=== PATIENT | female | born 1950 | race Caucasian/White ===

== ENCOUNTER 2018-01-10 09:22 | Day surgery (SDC) ==
[2018-01-10] MEDS ORDERED: LIDOCAINE 1% 20 ML MDV ID STA (10:15)
[2018-01-10 15:59] VITALS: BP 139/80; TEMP 97
--- NOTE | 2018-01-11 10:41 | OP ---
PROCEDURE: COLONOSCOPY TO THE ANASTOMOSIS . ENDOSCOPIST: Loreta DEE M.D. INDICATION: HISTORY OF ADENOMATOUS POLYPS INSTRUMENT: PCYieldBuild-190. MEDICATION: PER ANESTHESIA. PROCEDURE: The patient was positioned for colonoscopy. The digital rectal exam was negative. The colonoscope was inserted through the anus and advanced to the anastomosis. The patient has undergone right colectomy. The exam was normal with the exception of diverticulosis throughout the left colon. Retroflex exam was negative. Withdraw time 10 minutes and 22 seconds. PLAN: 1. Suggest repeat colonoscopy in 5 years CC: Dr. Jonathan MANZANO
== END 2018-01-10 12:40 | disposition home or self-care (01) ==
LOC: SURG 09:22
PROVIDERS: ATTEND Internal Medicine Gastroenterology
DX: Z86.010 Personal history of colon polyps (principal); K57.90 Diverticulosis of intestine, part unspecified, without perforation or abscess without bleeding